=== PATIENT | female | born 1965 | race Caucasian/White ===

== ENCOUNTER 2018-04-25 22:26 | Emergency (ER) | payer BC ==
[2018-04-25 22:39] VITALS: TEMP 98.5; BMI 25.9
[2018-04-25] MEDS ORDERED: ACETAMINOPHEN 325 MG TABLET (FP) PO ONE (23:14)
[2018-04-25] MEDS ORDERED: ACETAMINOPHEN 325 MG TABLET (FP) ONE (23:25)
--- NOTE | 2018-04-25 23:45 | PDOC ---
History of Present Illness - General Chief Complaint: Injury Stated Complaint: TOE INJURY Time Seen by Provider: 04/25/18 23:10 History Source: Patient Exam Limitations: No Limitations - History of Present Illness Initial Comments: 04/26/18 00:08 The patient is a 52 year old female, with no significant past medical history, who presents to the emergency department with left great toe pain since hitting her toe on her refrigerator yesterday. She reports pain under her left great toe and reportedly noticed some blood from under the nail yesterday. She also states she noticed the nail can slightly lift from her toe. Able to ambulate but painful The patient denies any numbness or tingling. Bleeding controlled. Allergies: NKDA Past History - Past Medical History Allergies/Adverse Reactions: Allergies Allergy/AdvReac Type Severity Reaction Status Date / Time No Known Drug Allergies Allergy Verified 04/25/18 22:36 Home Medications: Ambulatory Orders Naproxen Sodium [Aleve] 1 tab PO PRN 06/02/16 Sumatriptan Succinate [Imitrex] 100 mg PO PRN 06/02/16 Anemia: Yes Asthma: No Cancer: No Cardiac Disorders: No CVA: No COPD: No CHF: No Dementia: No Diabetes: No GI Disorders: No Disorders: No HTN: No Hypercholesterolemia: No Liver Disease: No Seizures: No Thyroid Disease: No Other medical history: migrains - Surgical History Abdominal Surgery: No Appendectomy: No Cardiac Surgery: No Cholecystectomy: No Lung Surgery: No Neurologic Surgery: No Orthopedic Surgery: No - Immunization History Immunization Up to Date: Yes - Suicide/Smoking/Psychosocial Hx Smoking Status: No Smoking History: Never smoked Have you smoked in the past 12 months: No Number of Cigarettes Smoked Daily: 0 Information on smoking cessation initiated: No Hx Alcohol Use: No Drug/Substance Use Hx: No Substance Use Type: None Hx Substance Use Treatment: No Review of Systems - Review of Systems Able to Perform ROS?: Yes Comments:: 04/26/18 00:09 Constitutional: no fevers or chills. MUSCULOSKELETAL: +Left great toe pain. No joint swelling. No neck or back pain. SKIN: no redness or skin changes, no discharge, no rash. Hematologic: no easy bruising/bleeding. NEUROLOGIC: No weakness, numbness or tingling. All other systems reviewed and negative, or as documented in HPI. *Physical Exam - Vital Signs Last Vital Signs Temp Pulse Resp BP Pulse Ox 98.5 F 71 17 129/58 100 04/25/18 22:35 04/25/18 22:35 04/25/18 22:35 04/25/18 22:35 04/25/18 22:35 - Physical Exam Comments: 04/26/18 00:09 General: Well appearing, awake and alert, NAD. CVS: 2+ peripheral pulses throughout, no peripheral edema MSK: (+) right great toe tender at distal tip of toe, no active bleeding. Nail bed stable in germinal matrix. no edema. Neuro: alert, oriented appropriately; no focal neurologic deficits. SILT, 5/5 distal and prox strength in distal toes/foot bilaterally Skin: warm and well perfused, cap refill <2 sec, normal color. no active bleeding or fluctuance. ED Treatment Course - RADIOLOGY Radiology Studies Ordered: Category Date Time Status TOE(S) LEFT [RAD] Stat Radiology 04/25/18 23:14 Ordered - Medications Given in the ED: ED Medications Discontinued Medications Generic Name Dose Route Start Last Admin Trade Name Freq PRN Reason Stop Dose Admin Acetaminophen 975 mg 04/25/18 23:14 04/25/18 23:28 Tylenol - PO 04/25/18 23:15 975 mg ONCE ONE Administration Medical Decision Making - Medical Decision Making 04/26/18 00:11 A portion of this note was documented by scribe services under my direction. I have reviewed the details of the note, within reason, and agree with the documentation with the following case summary and management plan written by me. 52 YOF p/w right great toe pain and injury s/p hitting against fridge door. no neuro changes or skin changes, no bleeding or signs of infection. vitals wnl. analgesia with tylenol. DDx. subungal hematoma, tuft fx, toe sprain, contusion. doubt subungal hematoma, nail bed in germinal matrix and maintained and stable, thus no need to replace or adjust or repair. pt also has nail hungarian which limits exam but on gross exam and manipulation, appears stable. NVI. XR left toe w/o acute fx, so likely toe contusion, will wrap with gauze for comfort and immobilization. monitor for signs of infection or hematoma. comfortable shoes, may weight bear. NSAID/tylenol PRN pain control. podiatry f/u provided. dispo: DC in stable condition, impression and plan made aware as above. I discussed the physical exam findings, ancillary test results and final diagnoses with the patient. I answered all of the patient's questions. The patient was satisfied with the care received and felt comfortable with the discharge plan and treatment plan. The patient will return to the Emergency Department with any new, persistent or worsening symptoms. 04/26/18 00:18 *DC/Admit/Observation/Transfer Diagnosis at time of Disposition: Sprain of left great toe - Discharge Dispostion Disposition: HOME Condition at time of disposition: Improved Decision to Admit order: No - Referrals Referrals: Radha Ingram MD [Staff Physician] - Geraldo Teresa [Staff Physician] - - Patient Instructions Printed Discharge Instructions: How to Prevent Falls, DI for Contusion, DI for Toe Sprain Additional Instructions: you are to follow with center machine operator, providers given you most likely have a toe sprain. may place gauze and tape to prevent significant movement for comfort. comfortable shoes for symptoms. rest and ice, pain control with tylenol/motrin every 6 hours as needed your nail is in place, make sure it stays in place, if further injury occurs or nail falls off, or signs of infection/hematoma develops, return sooner. - Post Discharge Activity
[2018-04-26 00:36] VITALS: BP 103/74; PULSE 88
== END 2018-04-26 00:36 | disposition home or self-care (01) ==
LOC: JER 22:26
DX: S93.512A Sprain of interphalangeal joint of left great toe, initial encounter (principal); W22.09XA Striking against other stationary object, initial encounter; Y93.89 Activity, other specified; Y92.030 Kitchen in apartment as the place of occurrence of the external cause; Y99.8 Other external cause status
CPT/HCPCS: 73660-TC-LT-FY; 99281-25

== ENCOUNTER 2020-03-12 21:04 | Emergency (ER) | payer BC ==
--- NOTE | 2020-03-12 21:32 | PDOC ---
Rapid Medical Evaluation Chief Complaint: Pain, Acute Time Seen by Provider: 03/12/20 21:31 Medical Evaluation: Allergies Allergy/AdvReac Type Severity Reaction Status Date / Time No Known Drug Allergies Allergy Verified 04/25/18 22:36 03/12/20 21:32 54 year old female with lower abdominal pain (suprapubic) x 3 days. no vaginal bleeding, denies fever/ chills, + oligura, c/o pain to b/l flank. denies NVD Last Vital Signs Temp Pulse Resp BP Pulse Ox 98.4 F 78 20 150/69 100 03/12/20 21:36 03/12/20 21:36 03/12/20 21:36 03/12/20 21:36 03/12/20 21:36 PE: patient alert ox3. + suprapubic tenderness, + CVAT A: suprapubic tenderness P: ua/ urine culture CBC CMp 03/12/20 21:38 Discharge Disposition - Diagnosis Suprapubic pain, Flank pain - Referrals Referrals: Delroy Delgado [Primary Care Provider] - - Patient Instructions - Post Discharge Activity
[2020-03-12 21:38] VITALS: BMI 27.4
--- NOTE | 2020-03-12 22:24 | PDOC ---
History of Present Illness - General Chief Complaint: Pain, Acute Stated Complaint: ABD PAIN Time Seen by Provider: 03/12/20 21:31 History Source: Patient - History of Present Illness Initial Comments: 03/13/20 00:59 54-year-old female complaining of suprapubic and pelvic pain bilateral with flank pain for the last 3 days. Denies fever/chills, nausea, vomiting, diarrhea. Patient reports decreased urination denies dysuria or frequency. Past medical history of fibroids Past History - Medical History Allergies/Adverse Reactions: Allergies Allergy/AdvReac Type Severity Reaction Status Date / Time No Known Drug Allergies Allergy Verified 04/25/18 22:36 Home Medications: Ambulatory Orders Naproxen Sodium [Aleve] 1 tab PO PRN 06/02/16 Sumatriptan Succinate [Imitrex] 100 mg PO PRN 06/02/16 Polyethylene Glycol 3350 [Miralax (For Daily Use) -] 17 gm PO DAILY #1 bottle 03/13/20 Anemia: Yes Asthma: No Cancer: No Cardiac Disorders: No CVA: No COPD: No CHF: No Dementia: No Diabetes: No GI Disorders: No Disorders: No HTN: No Hypercholesterolemia: No Liver Disease: No Seizures: No Thyroid Disease: No - Surgical History Abdominal Surgery: No Appendectomy: No Cardiac Surgery: No Cholecystectomy: No Lung Surgery: No Neurologic Surgery: No Orthopedic Surgery: No - Immunization History Immunization Up to Date: Yes - Psycho-Social/Smoking History Smoking Status: No Smoking History: Never smoked Have you smoked in the past 12 months: No Number of Cigarettes Smoked Daily: 0 - Substance Abuse Hx (Audit-C & DAST Scrn) How often the patient has a drink containing alcohol: Never Score: In Men: 4 or > Positive; In Women: 3 or > Positive: 0 Screen Result (Pos requires Nsg. Audit-10AR): Negative Review of Systems - Review of Systems Able to Perform ROS?: Yes Is the patient limited Yakut proficient: No ABD/GI: Yes: Abdominal cramping : Yes: Flank Pain, Urgency Musculoskeletal: No: Symptoms Reported, See HPI, Back Pain, Gout, Joint Pain, Joint Swelling, Muscle Pain, Muscle Weakness, Neck Pain, Joint Stiffness, Other *Physical Exam - Vital Signs Last Vital Signs Temp Pulse Resp BP Pulse Ox 98.4 F 78 20 150/69 100 03/12/20 21:36 03/12/20 21:36 03/12/20 21:36 03/12/20 21:36 03/12/20 21:36 - Physical Exam General Appearance: Yes: Appropriately Dressed Respiratory/Chest: positive: Lungs Clear, Normal Breath Sounds Gastrointestinal/Abdominal: positive: Normal Bowel Sounds, Tender (suprapubic tenderness), Soft Musculoskeletal: positive: CVA Tenderness, CVA Tenderness (R), CVA Tenderness (L) Extremity: positive: Normal Capillary Refill, Normal Inspection, Normal Range of Motion Integumentary: positive: Normal Color, Dry, Warm Neurologic: positive: Fully Oriented, Alert, Normal Mood/Affect ED Treatment Course - LABORATORY CBC & Chemistry Diagram: 03/12/20 23:14 03/12/20 23:14 ED Progress Note - Progress Note Progress Note: 03/13/20 01:02 A: pelvic pain; flank pain P: CTAP: TVUS labs ua IVF Medical Decision Making - Medical Decision Making 03/13/20 00:43 CTAP: Negative for right or left urinary tract stone or obstruction. No bowel obstruction or inflammation. There is a moderate to moderately large stool burden in the transverse left and sigmoid colon. Normal appendix visualized. No free intraperitoneal air or free fluid. Normal liver. Normal adrenal glands. Uterine calcifications likely fibroids. Note made of a prominent lymph node just posterior to the uterus and anterior to the rectum. Although no rectal or FOOD PORTER lesions are identified, recommend follow-up to help rule out an occult lesion causing enlarged lymph node. Osseous structures are intact. Small hiatal hernia. US: Positive for multiple uterine fibroids. The largest fibroids measure: -2.7 cm x 2.3 cm x 2.7 cm -1.5 cm x 1.2 cm x 1.6 cm. At least 1 of the large fibroids abuts the endometrial mucosa. Normal right ovary with positive Doppler blood flow. There is a 1.5 cm complex/hemorrhagic left ovarian cyst. There is positive Doppler blood flow to the left ovary. No free fluid Discharge - Discharge Information Problems reviewed: Yes Clinical Impression/Diagnosis: Flank pain, Hemorrhagic cyst of ovary Uterine fibroid Qualifiers: Uterine leiomyoma location: unspecified location Qualified Code(s): D25.9 - Leiomyoma of uterus, unspecified Disposition: HOME - Additional Discharge Information Prescriptions: Polyethylene Glycol 3350 [Miralax (For Daily Use) -] 17 gm PO DAILY #1 bottle - Follow up/Referral Referrals: Delroy Delgado [Primary Care Provider] - Stella Campuzano MD [Staff Physician] - Call tomorrow - Patient Discharge Instructions Patient Printed Discharge Instructions: Increased Dietary Fiber May Improve Constipation Conditions With Pelvic Latrell Additional Instructions: Drink plenty of fluids. Eat a diet high in fiber for your constipation. Take MiraLAX as prescribed. Follow-up with your cnmt you were noted to have a hemorrhagic cyst on y our left ovary and fibroids. You may take ibuprofen every 6 hours as needed for pain. Return to the ER if you are soaking 2 pads per hour, severe abdominal pain, or worsening symptoms. - Post Discharge Activity Work/Back to School Note: Back to Work
[2020-03-12] MEDS ORDERED: SODIUM CHLORIDE 1,000 ML IV STA (22:26)
--- NOTE | 2020-03-12 22:43 | PDOC ---
*Physical Exam - Vital Signs Last Vital Signs Temp Pulse Resp BP Pulse Ox 98.4 F 78 20 150/69 100 03/12/20 21:36 03/12/20 21:36 03/12/20 21:36 03/12/20 21:36 03/12/20 21:36 ED Treatment Course - LABORATORY CBC & Chemistry Diagram: 03/12/20 23:14 03/12/20 23:14 Medical Decision Making - Medical Decision Making 03/12/20 22:42 Patient seen by the advanced practice provider under my supervision. Ancillary testing reviewed as necessary. I agree with plan as outlined by the advanced practice provider. Discharge - Discharge Information Problems reviewed: Yes Clinical Impression/Diagnosis: Flank pain, Hemorrhagic cyst of ovary Uterine fibroid Qualifiers: Uterine leiomyoma location: unspecified location Qualified Code(s): D25.9 - Leiomyoma of uterus, unspecified Disposition: HOME - Additional Discharge Information Prescriptions: Polyethylene Glycol 3350 [Miralax (For Daily Use) -] 17 gm PO DAILY #1 bottle - Follow up/Referral Referrals: Stella Campuzano MD [Staff Physician] - Call tomorrow Delroy Delgado [Primary Care Provider] - - Patient Discharge Instructions Patient Printed Discharge Instructions: Increased Dietary Fiber May Improve Constipation Conditions With Pelvic Latrell Additional Instructions: Drink plenty of fluids. Eat a diet high in fiber for your constipation. Take MiraLAX as prescribed. Follow-up with your manager reimbursement you were noted to have a hemorrhagic cyst on your left ovary and fibroids. You may take ibuprofen every 6 hours as needed for pain. Return to the ER if you are soaking 2 pads per hour, severe abdominal pain, or worsening symptoms. - Post Discharge Activity Work/Back to School Note: Back to Work
[2020-03-12 23:10] LABS: URINE COLOR YELLOW
[2020-03-12 23:11] LABS: URINE APPEARANCE CLEAR; URINE BILIRUBIN NEGATIVE (NEGATIVE); URINE GLUCOSE (UA) NEGATIVE (NEGATIVE); URINE LEUK ESTERASE NEGATIVE (NEGATIVE); URINE NITRITE NEGATIVE (NEGATIVE); URINE PROTEIN NEGATIVE (NEGATIVE)
[2020-03-12 23:14] LABS: EPI CELLS 7 /uL (0-25.1); HYALINE CASTS 4 /uL (0-3.1); URINE BACTERIA 8 /uL (0-1359); URINE KETONE 1+ (NEGATIVE); URINE RBC 182 /uL (0-23.9); URINE WBC 12 /uL (0-25.8)
[2020-03-12 23:51] LABS: BASO % 0.9 % (0-2.0); EOS % 2.4 % (0-4.5); HEMATOCRIT 36.1 % (32.4-45.2); HEMOGLOBIN 12.1 GM/dL (10.7-15.3); LYMPH % 30.8 % (8-40); MCH 29.5 pg (25.7-33.7); MCHC 33.5 g/dl (32.0-36.0); MEAN PLT VOLUME 8.3 fl (7.5-11.1); MONO % 8.1 % (3.8-10.2); NEUT % 57.8 % (42.8-82.8); PLATELET COUNT 337 K/MM3 (134-434); RDW 13.6 % (11.6-15.6)
[2020-03-13 00:17] LABS: ALBUMIN 4.2 g/dl (3.4-5.0); BILIRUBIN,TOTAL 0.4 mg/dL (0.2-1); BLOOD UREA NITROGEN 18.1 mg/dL (7-18); CALCIUM 9.7 mg/dL (8.5-10.1); CREATININE 0.8 mg/dL (0.55-1.3); POTASSIUM 3.8 mmol/L (3.5-5.1); TOT PROT 7.9 g/dl (6.4-8.2)
[2020-03-13] MEDS ORDERED: KETOROLAC TROMETHAMINE 30 MG/1 ML VIAL IVPUSH ONE (01:03)
[2020-03-13] MEDS ORDERED: KETOROLAC TROMETHAMINE 30 MG/1 ML VIAL ONE (01:44)
[2020-03-13 01:57] VITALS: BP 139/73; PULSE 69; TEMP 97.6
== END 2020-03-13 01:58 | disposition home or self-care (01) ==
LOC: JER 21:04
PROC: 3E0337Z Introduction of Electrolytic and Water Balance Substance into Peripheral Vein, Percutaneous Approach (ICD-10-PCS; principal; 2020-03-12)
PROC: 3E033GC Introduction of Other Therapeutic Substance into Peripheral Vein, Percutaneous Approach (ICD-10-PCS; 2020-03-13)
DX: N83.292 Other ovarian cyst, left side (principal); D25.9 Leiomyoma of uterus, unspecified
CPT/HCPCS: 36415; 74176-TC; 76830-TC; 80053; 81003; 85025; 87086; 99285-25

== ENCOUNTER 2022-12-29 14:15 | Emergency (ER) | payer BC ==
[2022-12-29 14:27] VITALS: BP 135/53; PULSE 88; RESP 18; TEMP 98; BMI 29.9
[2022-12-29] MEDS ORDERED: ACETAMINOPHEN 1000 MG/100 ML BAG IVPB ONE (14:38)
[2022-12-29] MEDS ORDERED: LACTATED RINGERS SOLUTION 1000 ML INFUS.BAG IV ONE (14:38)
[2022-12-29] MEDS ORDERED: METOCLOPRAMIDE HCL INJECTION 10 MG/2 ML VIAL IVPUSH ONE (14:38)
[2022-12-29] MEDS ORDERED: KETOROLAC TROMETHAMINE 15 MG/ML VIAL IVPUSH ONE (14:39)
[2022-12-29] MEDS ORDERED: LIDOCAINE 5% TOPICAL PATCH TP ONE (14:39)
[2022-12-29] MEDS ORDERED: LIDOCAINE 5% TOPICAL PATCH ONE ×2 (14:44→14:57)
[2022-12-29] MEDS ORDERED: ACETAMINOPHEN INJECTION 100 ML IVPB ONE (14:44)
[2022-12-29] MEDS ORDERED: KETOROLAC TROMETHAMINE 15 MG/ML VIAL ONE (14:44)
[2022-12-29] MEDS ORDERED: METOCLOPRAMIDE HCL INJECTION 10 MG/2 ML VIAL ONE (14:44)
[2022-12-29] MEDS ORDERED: LIDOCAINE PATCH REMOVAL MC SCH (22:00)
== END 2022-12-29 16:57 | disposition home or self-care (01) ==
LOC: JERFT 14:15
PROC: 3E033NZ Introduction of Analgesics, Hypnotics, Sedatives into Peripheral Vein, Percutaneous Approach (ICD-10-PCS; principal; 2022-12-29)
PROC: 3E033GC Introduction of Other Therapeutic Substance into Peripheral Vein, Percutaneous Approach (ICD-10-PCS; 2022-12-29)
PROC: 3E033GC Introduction of Other Therapeutic Substance into Peripheral Vein, Percutaneous Approach (ICD-10-PCS; 2022-12-29)
DX: M54.2 Cervicalgia (principal); G89.29 Other chronic pain; G43.909 Migraine, unspecified, not intractable, without status migrainosus
CPT/HCPCS: 99284-25